=== PATIENT | male | born 1990 | race African-American/Black ===

== ENCOUNTER 2017-12-24 21:34 | Emergency (ER) | payer SELFPAY ==
[~2017-12-24] VITALS: Ht 175.3 cm; Wt 70.3 kg
[2017-12-24 21:40] VITALS: BP 140/79
[2017-12-24] MEDS ORDERED: UNOBMED (21:42)
[2017-12-24] MEDS ORDERED: LORazepam Inj 2mg/ml 1ml IV ONE (22:00)
[2017-12-24 22:15] LABS: APPEARANCE,URINE CLEAR; BILIRUBIN, URINE NEGATIVE (NEGATIVE); COLOR,URINE BROWN; GLUCOSE, URINE (UA) NEGATIVE (NEGATIVE); KETONES,URINE 4+ (NEGATIVE); LEUKOCYTE ESTERASE ,URINE 1+ (NEGATIVE); NITRITE,URINE NEGATIVE (NEGATIVE); PH,URINE 5 (4.5-8.0); PROTEIN,URINE 2+ (NEGATIVE); UROBILINOGEN,URINE 1 MG/DL (0.0-1.0)
[2017-12-24] MEDS ORDERED: Haloperidol 5mg/ml Inj IM ONE (22:45)
[2017-12-24] MEDS ORDERED: ZYPREXA5 MG ORAL (23:03)
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
[2017-12-24 23:10] VITALS: BP 136/73
== END 2017-12-24 23:10 | disposition home or self-care (01) ==
LOC: EDBD 21:34 → EMR 22:51
DX: F23 Brief psychotic disorder (principal); Z79.01 Long term (current) use of anticoagulants
CPT/HCPCS: 80307; 81001; 87086; 96361; 96372; 96374; 99284; J1630